=== PATIENT | female | born 1990 | race Caucasian/White ===

== ENCOUNTER 2024-08-04 11:29 | Outpatient (CLI) | payer BC, SELFPAY ==
--- NOTE | 2024-08-04 11:30 | CRLHL7_ITS ---
For Patients: As a result of the Cures Act, medical imaging exams and procedure reports are released immediately into your electronic medical record. You may view this report before your referring provider. If you have questions, please contact your health care provider. OB ULTRASOUND INDICATION: Dating and viability. TECHNIQUE: Real time grayscale imaging of the fetus was performed. Transabominal. LMP: 05/20/2024. LITZY by LMP: 02/24/2025. GA: 10 w, 6 d. Previous US: No. CRL: 3.4 cm. 10 w 2 d. LITZY: 02/28/2025. FHR: 159 BPM. Gestational sac: 4.9 cm. Appears within normal limits. Yolk sac: 4.1 mm. Appears within normal limits. Right ovary: 4.1 x 2.0 x 2.4 cm. CL?. Hypoechoic area possible corpus luteum? 1.4 x 1.1 x 1.3 cm. Left ovary: 2.7 x 1.6 x 1.6 cm. IMPRESSION: 1. Single living intrauterine measuring 10 weeks 2 days with sonographic due date 02/28/2025. 2. Corpus luteal cyst right ovary measures 1.4 cm. Eric Amaro M.D. Diagnostic Radiologist [email or web address] RENNY/[email or web address]/Dictated by: Eric Amaro MD @ 08/04/2024 4:22:00 PM (Electronically Signed)
--- OUTSIDE RECORDS SUMMARY | 2024-08-04 12:05 | XMS_ITS | Clinical Summary ---
Author Organization [facility] Address [address] [place] [address] Care Team Providers Care Electrical Assistant Name Role Phone Unavailable Primary Care Provider Unavailabl e Source Comments You are receiving this document as you are listed as the primary care provider,follow-up provider, or the patient has been referred to you for consultation.This is in compliance with the Medicare and[facility] EHR Incentive Program,which states Providers who transition their patient to another setting of careor provider of care or refers their patient to another provider of care shouldprovide summary care record for each transition of care or referral. [facility] Allergies No known active allergies Medications FLUVIRIN 0.5 ML AFSANEH 11/29/2016 Active ALBUterol sulfate HFA 108 (90 Base) MCG/ACT inhaler Inhale 1-2 Puffs every 4 hours as needed for Wheezing. 1 Each 11/09/2022 Active Active Problems No known active problems Family History Medical History Relation Name Comments Hypertension Mother Depression Brother Heart Disease Maternal Grandfather Alzheimer's Maternal Grandmother Dementia Paternal Grandfather Diabetes Paternal Grandfather Depression Sister Relation Name Status Comments Father Alive Mother Alive Brother Alive Maternal Grandfather Maternal Grandmother Paternal Grandfather Paternal Grandmother Alive Sister Alive Social History Tobacco Use Types Packs/Day Years Used Date Smoking Tobacco: Never Smokeless Tobacco: Never Alcohol Use Standard Drinks/Week Comments Yes 0 (1 standard drink = 0.6 oz pur e alcohol) Comments No Sex and Gender Information Value Date Recorded Sex Assigned at Not on file 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 Gender Identity Not on file Sexual Orientation Not on file 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 Not on file Not on file Last Filed Vital Signs Vital Sign Reading Time Taken Comments Blood Pressure 109/65 11/09/2022 11:28 AM CDT Pulse 87 11/09/2022 11:28 AM CDT Temperature 36.9 C (98.4 F) 11/09/2022 11:28 AM CDT Respiratory Rate 16 11/09/2022 11:28 AM CDT Oxygen Saturation 98% 11/09/2022 11:28 AM CDT Inhaled Oxygen Concentration - - Weight 61.7 kg (136 lb) 02/20/2017 10:44 AM DAY CARE ATTENDANT Height - - Body Mass Index - - Plan of Treatment Health Maintenance Due Date Last Done Comments Cervical Cancer Screening Due 1991 Hep C Screening (Preventive Services) 1991 HIV Screening (Preventive Services) 2007 Adult Preventive Visit 05/03/2009 DTaP/Tdap/Td Vaccine (1 - Tdap) 05/03/2010 HepB Vaccine (1) 05/03/2010 COVID-19 Vaccine (2 - 2023-2 5 season) 2023 03/04/2021 Influenza Vaccine (Season Ended) 2024 11/16/19 21 Zoster/Shingles Vaccine (1 of 2) 05/03/2041 HPV Vaccine Aged Out No longer eligi ble based on patient's age to complete this topic HepA Vaccine Aged Out No longer eligi ble based on patient's age to complete this topic Hib Vaccine Aged Out No longer eligi ble based on patient's age to complete this topic IPV (Polio) Vaccine Aged Out No longe r eligible based on patient's age to complete this topic MCV4 Vaccine Aged Out No longer eligi ble based on patient's age to complete this topic Meningococcal B Vaccine Aged Out No l onger eligible based on patient's age to complete this topic Pneumococcal Vaccine Aged Out No long er eligible based on patient's age to complete this topic Insurance [facility] [place]
--- OUTSIDE RECORDS SUMMARY | 2024-08-04 12:05 | XMS_ITS | Encounter Summary ---
Author Organization [facility] Address [address] [place] [address] Care Team Providers Care Bander And Cellophaner Helper Machine Name Role Phone None Reported, Pcp Primary Care Provider Unavail able Encounter Details Date Type Department Care Team (Late st Contact Info) Description 05/20/2024 Results Follow-Up Department of Family Medicine, [facility], in [place], [place] [address] [place] [id number] Parisa Laws, AMANDA, C.N.P., D.N.P. [address] [place] [phone] US OB First Trimester and Transvaginal Social History Tobacco Use Types Packs/Day Years Used Date Smoking Tobacco: Never Smokeless Tobacco: Never Alcohol Use Standard Drinks/Week Comments Not Currently 0 (1 standard drink = 0.6 oz pur e alcohol) [facility] Utilities Answer Date Recorded In the past 12 months has [facility] [employer] gas, oil, or water [facility] threatened to shut off services in your home? No 12/29/2023 Humiliation, Afraid, Rape, and Kick questionnair e Answer Date Recorded Within the last year, have y ou been afraid of your partner or ex-partner? No 04/22/2023 Within the last year, have y ou been humiliated or emotionally abused in other ways by your partner or ex-partner? No Within the last year, have y ou been kicked, hit, slapped, or otherwise physically hurt by your partner or ex-partner? No 04/22/2023 Within the last year, have y ou been raped or forced to have any kind of sexual activity by your partner or ex-partner? No 04/22/2023 Hunger Vital Sign Answer Date Recorded Within the past 12 months, y ou worried that your food would run out before you got the money to buy more. Never true 12/29/19 24 Within the past 12 months, t he food you bought just didn't last and you didn't have money to get more. Never true 12/29/2023 PRAPARE - Transportation Answer Date Re corded In the past 12 months, has l ack of transportation kept you from medical appointments or from getting medications? No 12/10 In the past 12 months, has l ack of transportation kept you from meetings, work, or from getting things needed for daily living? No 12/29/2023 Depression Answer Date Recor ded PHQ-9 Total Score (max 27) 4 01/29 Housing Stability Answer Date Recorded What is your living situation today? 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 Author [facility] Care Plan for Healthy Care Plan [facility] Care Plan for Healthy No Support, [place] [facility] - Nicotine Dependency Chronic Care Plan [facility] Care Plan for Healthy No Support, [employer] documented as of this encounter Visit Diagnoses Not on filedocumented in this encounter Additional Health Concerns Active Problems Noted Date Diagnosed Date [facility] Care Plan for Healthy 12/11 Assessment Noted Time PHQ-9 Depression Total Score: 4 01/30/20 23 3:38 PM SUB ASSEMBLY TEAM WORKER documented as of this encounter Care Teams Bander And Cell[employer]er Helper Machine Relationship Specialty Start Date End Date None Reported, Pcp PCP - General Family Medicine 05/20/24 documented as of this encounter
--- OUTSIDE RECORDS SUMMARY | 2024-08-04 12:05 | XMS_ITS | Clinical Summary ---
Author Organization [facility] Address [address] [place] [address] Care Team Providers Care Rouge Miller Name Role Phone None Reported, Pcp Primary Care Provider Unavail able Source Comments Patient records contain information from all sites at [facility]. For routine questions regarding patient records, call [phone] during business hours, M-F 8:00 AM - 5:00 PM Central Time. Record requests for emergency care only can be directed to [phone] at any time.[facility] Allergies Active Allergy Reactions Criticality Noted Date Comments Latex Other (see comments) 08/21/2022 Intolerance of latex fruit family (avocado, ramirez, etc.) Quinoa GI intolerance 08/21/2022 Medications * This document contains information received from the source organization and may not represent a complete record from that organization. fluticasone (VERAMYST) 27.5 mcg/actuation nasal spray Administer 2 sprays into each nostril as needed for rhinitis or allergies. Active PNV no.95/ferrous fum/folic ac ( ORAL) Take 4 each by mouth daily. gummy Active Active Problems Problem Noted Date Diagnosed Date Other Immediate Hemorrhage 04/24/2023 Anemia Posthemorrhagic Acute (Blood Loss Anemia) 04/24/2023 Polyhydramnios Unspecified Trimester Single Gest ation 04/22/2023 Section Delivery 04/22/2023 Overview (04/24/2023): The patient was admitted to the [facility] for induction of labor for polyhydramnios. Her was complicated by polyhydramnios, anemia, migraines. Her labor course was induced with Cervidil and IV Pitocin, utilizing natural methods and epidural anesthesia for pain management. Complications of labor included failure to progress, meconium stained fluid. She had a primary delivery, delivering a liveborn female with weight of 4.32 kg . Gestational age: 40w5d. occurred: 04/23/2023 10:28 PM Perineal lacerations or episiotomy: Intact Lacerations were repaired with: none -- no repair needed Contraceptive methods administered during the delivery: None Both mother and baby were in stable condition at the conclusion of the procedure. When the patient met appropriate criteria, she was transferred to the floor. She received her care within the [facility]. Provider: Melony Ordoñez CNM who practices in [place]. Anemia 01/30/2023 Overview (04/24/2023): RESOLVED 01/30/23 28wk labs, Hgb 9.8. Recommended daily iron. Also having symptoms of RRL. Recheck at 36 wks. 03/30/23 Hgb 12.6. Discussed decreasing dosage to every other day. No longer having RRL symptoms. Care And Lactating 09/26/2022 Overview (09/26/2022): 09/26/22 NOB visit. Declines pap smear; plan on collecting at 6wk PP visit. Migraine Headache 09/26/2022 Resolved Problems Problem Noted Date Diagnosed Date Resolved Date Body Mass Index 30.0 To 30.9 Adult 04/22/2023 04/24/2023 Encounters * This document contains information received from the source organization and may not represent a complete record from that organization. Date Type Department Care Team Description 05/20/2024 2:00 PM CDT - 05/20/2024 11:59 PM CDT Hospital Encounter Department of Radiology in [address] [place] [address] [phone] Parisa Laws APRN, C.N.P., D.N.P. Spotting Complicating First Trimester (HCC) Discharge Disposition: Home or Self Care 05/20/2024 2:00 PM CDT Office Visit Department of Family Medicine, [facility], in [address] [place] [address] [phone] Eric Davies M.D. Pasche, Rochelle L, APRN C.N.P., D.N.P. Spotting Complicating First Trimester (HCC) (Primary Dx) Discharge Disposition: Home or Self Care 05/20/2024 1:54 PM CDT - 05/20/2024 1:59 PM CDT Hospital Encounter Department of Laboratory Medicine in [address] [phone] Parisa Laws APRN C.N.P., D.N.P. Spotting Complicating First Trimester (HCC) Discharge Disposition: Home or Self Care 05/20/2024 Results Follow-Up Department of Family Medicine, [facility], in [address] [place] [address] [phone] Parisa Laws APRN, C.N.P., D.N.P. US OB First Trimester and Transvaginal 05/19/2024 Nurse Triage Department of Family Medicine, [facility], in [place], [place] [address] [place] [address] Jovita Bernal R.N. - Vaginal Bleeding 05/18/2024 Clinical Communication Department of Obstetrics and Gynecology in [address] [phone] Christen Burk M.D. Vaginal Bleeding from Last 3 Months Immunizations Immunization Administration Dates Next Due 4vHPV (discontinued) 08/19/2013,01/31/2013 DTP 09/06/1992, 2,1991,1991 DTaP (Infanrix, Tripedia) 08/26/1996 HepB, Unspecified 04/13/2000,10/31/1999,08/24/20 00 Hib, Unspecified 09/06/1992,1991, 2 Influenza, Unspecified 10/22/2013,12/03/2012 MMR 09/13/2003,09/06/1992 OPV 08/26/1996, 3,1991,1991,1991 Td (Adult), adsorbed 09/13/2003 Tdap 01/05/2013 influenza trivalent vaccine (6 months and older)(PF) 12/10/2023,11/29/2016,11/18/2014 influenza vaccine quad (FLUZONE/FLUARIX) (6 months and older)(PF) 11/15/2020,12/07/2019,12/02/2017,2015 Family History Medical History Relation Name Comments Alcohol abuse Brother Juan An No Known Problems Daughter 1 Migraines Father Eulalio An Gets regular m igraines Leukemia Maternal Grandfather Alzheimer's disease Maternal Grandmother Leukemia Maternal Grandmother Alcohol abuse Mother Rosie An Asthma Mother Rosie An Uses an inhaler occasionally, a few times a year Hypertension Mother Rosie An Has been on HBP meds for as long as I can remember, though she doesn't have the healthiest habits Alcohol abuse Mother's Brother Vaughn Pedro Obesity Paternal Grandfather No Known Problems Sister 1 No Known Problems Sister 2 Relation Name Status Comments [place] An Alive Daughter 1 Daughter 2 Suzie Campa Alive Father Eulalio An Alive Maternal Grandfather Maternal Grandmother Mother Rosie An Alive Mother's Brother Vaughn Pedro Alive Paternal Grandfather Paternal Grandmother Sister 1 Alive Sister 2 Alive Social History Tobacco Use Types Packs/Day Years Used Date Smoking Tobacco: Never Smokeless Tobacco: Never Alcohol Use Standard Drinks/Week Comments Not Currently 0 (1 standard drink = 0.6 oz pur e alcohol) [facility] Utilities Answer Date Recorded In the past 12 months has th e [place], gas, oil, or water [employer] threatened to shut off services in your [...] your living situation today? I [facility] a [facility] place to live 12/29/2023 Comments No Sex and Gender Information Value Date Recorded Sex Assigned at Female 08/18/2022 7:59 AM CDT Legal Sex Female 6:12 PM DOCK OPERATOR Gender Identity Female 08/18/2022 7:59 AM CDT Sexual Orientation Choose not to disclose 2022 7:59 AM CDT Last Filed Vital Signs Vital Sign Reading Time Taken Comments Blood Pressure 115/76 05/20/2024 2:05 PM CDT Pulse 87 05/20/2024 2:05 PM CDT Temperature 36.5 C (97.7 F) 05/20/2024 2:05 PM CDT Respiratory Rate 18 04/26/2023 11:00 AM CDT Oxygen Saturation 97% 04/26/2023 11:00 AM CDT Inhaled Oxygen Concentration - - Weight 68.5 kg (151 lb 0.2 oz) 05/20/2024 2:05 P M CDT Height 166.2 cm (5' 5.43) 05/20/2024 2:05 PM CD T Body Mass Index 24.8 05/20/2024 2:05 PM CDT Plan of Treatment Health Maintenance Due Date Last Done Comments Hepatitis C Screening 1991 HPV Vaccines (3 - 3-dose series) 11/11/2013 08/19/2013, 01/31/2013 Cervical/Vaginal Cancer Screening 03/31/2017 03/31/2014 DTaP,Tdap,and Td Vaccines (7 - Td or Tdap) 01/05/2023 01/05/2013, 09/13/2003, 08/26/1996, Additional history exists COVID-19 Vaccine () 10/11/2023 03/04/2021 IPV Vaccines Completed 08/26/1996, 08/10, 1991, Additional history exists Hepatitis B Vaccines Completed 04/13/2000, 10/31/1999, 10/03/1999 HIV Screening Completed 09/26/2022 Influenza Vaccine Completed 12/10/2023, , 12/07/2019, Additional history exists Depression Screening (Annual PHQ-2) Completed 05/20/2024, 05/20/2024 Pneumococcal vaccine (0-49 years) Aged Out No longer eligible based on patient's age to complete this topic Goals Goal Patient Goal Type Associated Problems Recent Progress Patient-Stated? Author [facility] Care Plan for Healthy Care Plan [facility] Care Plan for Healthy No Support, [facility] - Nicotine Dependency Chronic Care Plan [facility] Care Plan for Healthy No Support, [place] Procedures Procedure Name Priority Date/Time Associated Diagnosis Comments US OB FIRST TRIMESTER AND TRANSVAGINAL RAD - Routine (most inpatients and all outpatients) 05/20/2024 2:49 PM CDT Spotting Complicating First Trimester (HCC) BASIC METABOLIC PANEL, S/P Routine 05/20/2024 1:58 PM CDT Spotting Complicating First Trimester (HCC) HUMAN CHORIONIC GONADOTROPIN (HCG), GIUSEPPE, Routine 05/20/2024 1:58 PM CDT Spotting Complicating First Trimester (HCC) CBC WITH DIFFERENTIAL, B Routine 05/20/2024 1:58 PM CDT Spotting Complicating First Trimester (HCC) HIV-1/-2 AG AND AB SCRN, PLASMA Routine 09/26/2022 12:36 PM CDT Encounter For Supervision Of Normal Unspecified Trimester (HCC) PATHOLOGY ELEMENT BURNER CYTOLOGY Routine 03/31/2014 4:00 PM DOCK OPERATOR from Last 3 Months or Most Recently Relevant to Health Maintenance Results * US OB First Trimester and Transvaginal (05/20/2024 2:49 PM CDT) Anatomical Region Laterality Modality Body, Ultrasound OB RST LOS, Ultrasound ARZ LOS, Ultrasound FLA LOS N/A Ultrasound Impressions 05/20/2024 3:00 PM CDT Small fluid collection with irregular cystic areas in endometrium. Differentials include early loss versus intrauterine too early to be identified. No positive findings of ectopic . Recommend clinical correlation. Narrative 05/20/2024 3:00 PM CDT EXAM: US OB FIRST TRIMESTER AND TRANSVAGINAL COMPARISON: Ultrasound OB, 04/22/2023. TECHNIQUE: Transabdominal and Transvaginal FINDINGS: Number of Gestations: Single Gestational age and LITZY by LMP or OB/EHR assignment: 9 w 2 d, LITZY: 12/21/2024 INTRAUTERINE Embryo: Not seen, Gestational Sac: Irregular cystic areas in the endometrium. Yolk Sac: Not seen Uterus: No unexpected findings. Right Ovary/Adnexa: Normal. Left Ovary/Adnexa: Corpus luteum. Cervical Length: Subjectively normal by Transabd evaluation only Intraperitoneal Fluid: None. Procedure Note Nik Curtis M.B., Chris, MEnedina. - 05/20/2024 EXAM: US OB FIRST TRIMESTER AND TRANSVAGINAL COMPARISON: Ultrasound OB, 04/22/2023. TECHNIQUE: Transabdominal and Transvaginal FINDINGS: Number of Gestations: Single Gestational age and LITZY by LMP or OB/EHR assignment: 9 w 2 d, LITZY:12/21/2024 INTRAUTERINE Embryo: Not seen, Gestational Sac: Irregular cystic areas in the endometrium. Yolk Sac: Not seen Uterus: No unexpected findings. Right Ovary/Adnexa: Normal. Left Ovary/Adnexa: Corpus luteum. Cervical Length: Subjectively normal by Transabd evaluation only Intraperitoneal Fluid: None. IMPRESSION: Small fluid collection with irregular cystic areas in endometrium.Differentials include early loss versus intrauterine pregnancytoo early to be identified. No positive findings of ectopic .Recommend clinical correlation. us Parisa Laws APRN C.N.P., D.N.P. IMG OB US PROCEDURES Final Result * (ABNORMAL) CBC with Differential, Blood (05/20/2024 1:58 PM CDT) Pathologist [facility] Hemoglobin 14.2 11.6 - 15.0 g/dL 05/20/2024 2:12 PM CDT [facility] Hematocrit 41.3 35.5 - 44.9 % 05/20/2024 2:12 PM CDT [facility] Erythrocytes 4.66 3.92 - 5.13 x10(12)/L 05/20/2024 2:12 PM CDT [facility] MCV 88.6 78.2 - 97.9 fL 05/20/2024 2:12 PM CDT [facility] RBC Distrib Width 12.7 12.2 - 16.1 % 05/20/2024 2:12 PM CDT [facility] Platelet Count 284 157 - 371 x10(9)/L 05/20/2024 2:12 PM CDT [facility] Leukocytes 6.8 3.4 - 9.6 x10(9)/L 05/20/2024 2:12 PM CDT [facility] Neutrophils 4.20 1.56 - 6.45 x10(9)/L 05/20/2024 2:12 PM CDT [facility] Lymphocytes 1.56 0.95 - 3.07 x10(9)/L 05/20/2024 2:12 PM CDT [facility] Monocytes 0.83(H) 0.26 - 0.81 x10(9)/L 05/20/2024 2:12 PM CDT [facility] Eosinophils 0.20 0.03 - 0.48 x10(9)/L 05/20/2024 2:12 PM CDT [facility] Basophils 0.03 0.01 - 0.08 x10(9)/L 05/20/2024 2:12 PM CDT [facility] Blood (Blood, Venous) 05/20/2024 1:58 PM CDT 05/20/2024 2:00 PM CDT us Parisa Laws APRN, C.N.P., D.N.P. LAB BLOOD ADD-ON Final Result Performing Organization Address City/[facility]/ZIP Co de Phone Number [facility] [address] [place] [phone], [facility] in [address] [address] * (ABNORMAL) hCG (Human Chorionic Gonadotropin), Quantitative, (05/20/2024 1:58 PM CDT) HCG, Quantitative, , P 7440(H) <5 IU/L 05/20/2024 2:25 PM CDT [facility] Blood (Blood, Venous) 05/20/2024 1:58 PM CDT 05/20/2024 2:00 PM CDT us Parisa Laws APRN, C.N.P., D.N.P. LAB BLOOD ADD-ON Final Result [facility] [address] [place] [id number], [facility] [address] [address] * Basic Metabolic Panel (05/20/2024 1:58 PM CDT) Potassium, P 4.0 3.6 - 5.2 mmol/L 05/20/2024 2:25 PM CDT [facility] Sodium, P 141 135 - 145 mmol/L 05/20/2024 2:25 PM CDT [facility] Chloride, P 105 98 - 107 mmol/L 05/20/2024 2:25 PM CDT [facility] Bicarbonate, P 23 22 - 29 mmol/L 05/20/2024 2:25 PM CDT [facility] Anion Gap, P 13 7 - 15 05/20/2024 2:25 PM CDT [facility] BUN (Blood Urea Nitrogen), P 7 6 - 21 mg/dL 05/20/2024 2:25 PM CDT [facility] Creatinine 1.04 0.59 - 1.04 mg/dL 05/20/2024 2:25 PM CDT [facility] Estimated GFR (eGFR) 73 >=60 mL/min/BSA 05/20/2024 2:25 PM CDT [facility] Comment: Estimated GFR calculated using the 2020 CKD_EPI creatinine equation. Calcium, Total, P 9.0 8.6 - 10.0 mg/dL 05/20/2024 2:25 PM CDT [facility] Glucose, P 96 70 - 140 mg/dL 05/20/2024 2:25 PM CDT [facility] Blood (Blood, Venous) 05/20/2024 1:58 PM CDT 05/20/2024 2:00 PM CDT us Parisa Laws APRN, C.N.P., D.N.P. LAB BLOOD ADD-ON Final Result [facility] [address] [place] [address], [facility] in [place] [address] [place] [phone] * HIV-1/-2 Ag and Ab Scrn, Plasma (09/26/2022 12:36 PM CDT) HIV Ag/Ab Scrn, P Negative Negative 09/29/2022 10:18 AM CDT ECLR Comment: Negative result does not rule out HIV infection. If exposure to HIV infection occurred <14 days ago, contact the laboratory to request addition of HIV-1/HIV-2 RNA detection , Plasma (HPP12). HIV-1 p24 Ag Scrn, P Negative Negative 09/29/2022 10:18 AM CDT ECLR Comment: Negative result does not rule out HIV infection. If exposure to HIV infection occurred <14 days ago, contact the laboratory to request addition of HIV-1/HIV-2 RNA detection , Plasma (HPP12). HIV-1 Ab Scrn, P Negative Negative 09/29/2022 10:18 AM CDT ECLR Comment: Negative result does not rule out HIV infection. If exposure to HIV infection occurred <14 days ago, contact the laboratory to request addition of HIV-1/HIV-2 RNA detection , Plasma (HPP12). HIV-2 Ab Scrn, P Negative Negative 09/29/2022 10:18 AM CDT ECLR Comment: Negative result does not rule out HIV infection. If exposure to HIV infection occurred <14 days ago, contact the laboratory to request addition of HIV-1/HIV-2 RNA detection , Plasma (HPP12). Blood (Blood, Venous) 09/26/2022 12:36 PM CDT 09/26/2022 8:56 PM CDT us Melony Ordoñez APRN, CNM, M.S.N. LAB MICROBIOLOGY - BLOOD ORDERABLES Final Result [facility] [address] [place] [address], [facility] ECLR [place] [address] * Pathology ELEMENT BURNER Cytology (03/31/2014 4:00 PM DOCK OPERATOR) 03/31/2014 4:00 PM DOCK OPERATOR Narrative [facility] - 04/05/2014 4:02 PM DOCK OPERATOR Pat: JM AN ([facility]-[id number]) Age/Sex: 23 F Loc: -00 (RWDena ) CoPath LI: 03/31/14 16:00 REC: 03/31/14 16:00 PHYS: , Cytology Surepath thinlayer cervica Patient Name: JM AN MR#: [id number] Submitting Physician: DEA CALI DEVELOPER ARCHITECT [id number] Specimen #[id number] Performing Lab: [address] [address] CLINICAL HISTORY: Last menstrual period: Status: Specimen Source: Cervical/Endo Cervical Pap Type: Routine Pap Clinical History/Status: Other Ancillary Testing: If ASCUS, Reflex to HPV Testing Hormone Therapy: Yes Pap Specimen: SurePath Last Menstrual Period: Unknown Source: Surepath thinlayer cervical/endocervical specimen [SurePath vial with collection device(s)] Diagnosis Specimen Adequacy: Satisfactory for interpretation : endocervical or transformation zone component present. General Categorization: Negative for intraepithelial lesion or malignancy. The PAP smear is not a diagnostic procedure and should not be used as the sole means to detect cervical cancer. It is only a screening procedure to aid in the detection of cervical cancer and its precursors. Both false-negative and false-positive results have been experienced. us Dea Cali APRN, C.N.P., [facility] PAP COPAT H ORDERABLES Final Result [facility] from Last 3 Months or Most Recently Relevant to Health Maintenance Additional Health Concerns Active Problems Noted Date Diagnosed Date [facility] Care Plan for Healthy 12/11 Insurance [employer] [id number] [facility] [place] [address] Advance Directives For more information, please contact: [phone] * Full Code (Latest Code Status on File) Date Activated Date Inactivated Comments 04/24/2023 2:20 AM 04/26/2023 3:28 PM Question Answer Comments Full Code: Discussed * Full Code Date Activated Date Inactivated Comments 04/23/2023 10:39 AM 04/24/2023 2:20 AM Question Answer Comments Full Code: Not Discussed Due to: Not medically appropriate Care Teams Rouge Miller Relationship Specialty Start Date End Date None Reported, Pcp PCP - General Family Medicine 05/20/24
--- OUTSIDE RECORDS SUMMARY | 2024-08-04 12:05 | XMS_ITS | Data Portability ---
Author Organization [place] - [facility] [employer] [facility] Address [address] [place] [address] Assessment Encounter Date Assessment Date Assessment LastModified by Organization Details LastModified Time 01/11/2024 01/11/2024 A/P: DDx - UTI, IC or yeast infection, vaginitis, kidney stones, pyelo. Likely UTI. -Currently no s/s of ascending infection. -Discussed likely cause of symptoms and expected course with patient. -Advised we can get a urine culture done prior to starting ABX to confirm bacteria and sensitivities but she prefers to take ABX without getting culture first and I agreed to this since the episode seems uncomplicated. -She can also try to flush system with water and cranberry juice and wait to see if symptoms improve on their own. 1. Macrobid BID x 5 days was prescribed. [email or web address] Not available 01/11/2024 12:06:37 Plan of Treatment Reminders Order Date Submit Date Provider Last Modified By Organization Details Last Modified Time Details Appointments None recorded. Lab None recorded. Referral None recorded. Procedures None recorded. Surgeries None recorded. Imaging None recorded. Medication Orders nitrofurant oin monohydrate /macrocryst als 100 mg capsule 2023 024 Josey [id number], [address] [place], [id number], 12:08:33 Patient TargetsNo targets recorded. Patient Instructions Encounter Date Encounter Id Patient Instructions Last Modified By Organization Details Last Modified Time 01/11/2024 [id number] Urinary Tract Infection (UTI) in Women: Care Instructions [email or web address] Not available 01/11/2024 12:08:21 MEDICATIONS FOR OBSTETRIC PATIENTS Please avoid (if possible) during the first trimester (20 weeks gestation) any of the following medications listed that contains either Pseudoephedrine HCL or Phenylephrine HCL (noted with an asterisk). You can use after first trimester. Also avoid these if any issues with your blood pressure. Allergy/Sinus Tylenol Breathe Right Strips Benadryl Alavert, Mucinex, Chlor-Trimeton, Travist, Claritin, Zyrtec, Simofresh Nasal [place] Neti-Pot Nasal Wash Antihistamine plus Analgesic Tylenol Sore Throat Nighttime Liquid Constipation Drink lots of liquids and add fiber into your diet or Fibercon Colace Surfak 2-3 x a day Miralax Use a bulk laxative like Metamucil [id number] Robitussin Cough and Congestion Liquid Robitussin DM Liquid Sudafed Cold Capsules* Tylenol Cold Severe Congestion Daytime Caplets Tylenol Flu Daytime Gel Caps Cough Suppressant: Robitussin DM Expectorant: Robitussin PE Congestion: Robitussin CF Cough Suppressant Plus Expectorant Mucinex DM Extended Release Tablets Coricidin HBP Chest Congestion and Cough Soft Gels Decongestant Sudafed 12 or 24 Hour Tablets* Sudafed Nasal Decongestant Tablets* Decongestant Plus Expectorant Mucinex D- Extended Release Tablets* Sudafed Non-Drying Liquid Caps* Diarrhea Donnagel Immodium Notify Doctor if diarrhea persists more than 72 hours Expectorant Mucinex Extended Release Tablets Robitussin Chest Congestion Liquid Gas Mylicon-80 or Mylanta II Increase fiber in diet, avoid constipation Headache/Analgesic Acetaminophen, Tylenol, Extra Strength Tylenol ABSOLUTELY NO ADVIL, ALEVE, OR ASPRIN Heartburn Eat Small Frequent Meals, Avoid Rodey and Spicy Foods Avoid Drinking Fluids Right Before Bed Tums, Malox, or Mylanta Pepcid or Pepcid AC Hemorrhoids Drink Lots Of Liquids and Add Fiber To Diet Warm Bath Soaks Dermoplast [place] Anusol, Nupercainal, Witch Ruthy, Preparation H, or Tucks Insomnia Benadryl Tylenol PM Leg Cramps Stretch Leg Muscles, Decrease Physical Activity Just Before Bed Leg Warmers At Night When Going To Bed Increase Calcium Intake Multi-Symptoms Sudafed Sinus and Cold Liquid* Nausea Avoid strong flavored, greasy, or spicy foods. Eat Small Frequent Meals Zahra Tablets Drink Between Meals, Not With Meals B-Nkechi Pops/Lozenges Try Emetrol or B6 (no more than 2 per day) 30 minutes prior to meals and Unisom in the morning and evening. Sore Throat Gargle With Salt Water Sucrets or Cepacol Lozenges Chloraseptic Throat [place] Swelling Elevate Legs Support Hose Increase Fluid Intake Call Doctor if swelling is accompanied with headaches AND not relieved with Tylenol *Over the counter alternative for DICLEGIS: Vitamin B6 25mg, 1 tablet by mouth 3-4 times daily. Unisom 1 tablet at night, may add tablet in the morning if needed. [email or web address] Not available 01/11/2024 12:07:43 Reason for Referral None Reported. Medical Equipment None Reported. Allergies No known drug allergies Medications Name Sig Start Date Stop Date Status Note LastModified by Organization Details LastModified Time phenazopy ridine 200 mg tablet active [NOT TAKING] Not Available Not Available Not Available oxycodone 5 mg tablet active Not Available Not Available Not Available nitrofura ntoin monohydra te/macroc rystals 100 mg capsule Take 1 capsule every 12 hours by oral route for 5 days. 2023 active NOT for pyelonep hritis Not Available Not Available Not Available UNLISTED MEDICATIO N [Migrate d medicati on name:] Sertrali ne:: 10/14 completed Not Available Not Available Not Available UNLISTED MEDICATIO N [Migrate d medicati on name:] Omeprazo le 20 mg delayed release capsule: :20 mg 10/14 completed Not Available Not Available Not Available Vitals None Recorded Social History None recorded. Functional Status None recorded. Mental Status None recorded. Family History Nothing Reported. Medical History No medical history recorded. Gynecological HistoryNo gynecological history recorded. Obstetrics History GPAL:G 0 P 0 0 0 0 Past Encounters Encounter ID Performer Location Encounter Start Date Encounter Closed Date Diagnosis/Indication Diagnosis SNOMED-CT Code Diagnosis ICD10 Code Diagnosis Note [id number] H[facility] Mcmill[facility] [address] [id number] 01/11/2024 11:48:59 01/11/2024 18:08:49 Urinary tract infectious disease 42853503 N39.0 Health Concerns Section Related Observation LastModified by Organization Detai ls LastModified Time None Recorded Concern Status LastModified by Organization Details LastModified Time None Recorded Advance Directives Directive None Recorded Payers Insurance Date Sequence Insurance Name Policy Number Policy Bingham Covered Member ID Bingham Member ID Guarantor Name 01/11/2024 1 [facility] [id number] Estefani Campa [id number] Estefani Dicklvis 01/11/2024 [facility] [id number] Estefani Dicklvis [id number] Estefani Lillvis 01/11/2024 2 *SELF PAY* [id number] Estefani Dicklvis [id number] Estefani Lillvis 01/11/2024 1 *SELF PAY* Mali Campa Notes Date Note Type Note Provider Name and Address Organization Details Recorded Time 01/11/2024 text/html Patient greeted. Patient , location, and phone number confirmed. Verbal consent obtained to treat this patient via the telemedicine/video platform. Patient/parent understands that there are limitations to my evaluation. Clinician attests they are physically located in the following state at the time of visit: [place] CC: urinary symptoms HPI:33 yo female with symptoms for 2 days7 weeks Reports dysuria and frequencyNo hematuriaReports low abdominal discomfort, no associated back painDenies vaginal itching, odor, or dischargeLast UTI 6 months ago RX was taken and symptoms alleviated.No h/o kidney stones or kidney infection ROS:GEN: no f/c, fatigued since onset of symptomsGI: no nausea or vomiting, no diarrheaGU: as per HPI HOLA Mcmillan [address] [facility] [address], [place], [address], [facility] 01/11/2024 12:08:56 OBGyn Episode No OBEpisode recorded.
--- OUTSIDE RECORDS SUMMARY | 2024-08-05 01:04 | XMS_ITS | Clinical Summary ---
Author Organization [facility] Address [address] [place] [address] Care Team Providers Care Academic Services Coordinator Name Role Phone Unavailable Primary Care Provider Unavailabl e Source Comments You are receiving this document as you are listed as the primary care provider,follow-up provider, or the patient has been referred to you for consultation.This is in compliance with the Medicare andThe [facility] EHR Incentive Program,which states Providers who transition their patient to another setting of careor provider of care or refers their patient to another provider of care shouldprovide summary care record for each transition of care or referral. 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
== END 2024-08-04 11:30 | disposition home or self-care (01) ==
LOC: US 11:30
PROVIDERS: Visit Provider Advanced Practice Midwife
DX: Z34.91 Encounter for supervision of normal pregnancy, unspecified, first trimester (principal); O34.81 Maternal care for other abnormalities of pelvic organs, first trimester; N83.11 Corpus luteum cyst of right ovary; Z3A.10 10 weeks gestation of pregnancy; Z34.81 Encounter for supervision of other normal pregnancy, first trimester; Z67.20 Type B blood, Rh positive
CPT/HCPCS: 76801; 83021; 86850; 86900; 86901; 87086

== ENCOUNTER 2024-08-04 12:49 | Outpatient (CLI) | payer BC, SELFPAY | END 2024-08-04 12:50 | disposition home or self-care (01) | PROVIDERS: Visit Provider Advanced Practice Midwife | DX: Z34.81 Encounter for supervision of other normal pregnancy, first trimester (principal); Z67.20 Type B blood, Rh positive | CPT/HCPCS: 76801; 83020; 83021; 85660; 86850; 86900; 86901; 87086 ==

== ENCOUNTER 2024-10-07 09:59 | Outpatient (CLI) | payer BC, SELFPAY ==
--- NOTE | 2024-10-07 10:15 | CRLHL7_ITS ---
For Patients: As a result of the Century Cures Act, medical imaging exams and procedure reports are released immediately into your electronic medical record. You may view this report before your referring provider. If you have questions, please contact your health care provider. OB ULTRASOUND SURVEY LMP: 05/20/2024. LITZY by LMP: 02/24/2025. GA: 20 w, 0 d. INDICATION: anatomy. TECHNIQUE: Real time bradshaw scale imaging of the fetus was performed. Evaluate anatomy. Transabdominal imaging performed. position: Vertex. Cervix: Visualized. Technique: Transabdominal. Length of closed cervix: 4.0 cm. Placenta/cord: Anterior. Technique: Transabdominal. Placenta tip to internal OS: 7.5 cm. Umbilical Cord: 3-vessel cord. Placenta insertion: Marginal (within 2 cm of placenta edge). Amniotic Fluid: 3.8 cm SDP (greater than/equal to: 2- less than 8 cm). SURVEY: Observed Structures. Calvarium/Spine: Cerebellum: 2.0 cm, 20 w 5 d. Cisterna Magna: 4.5 mm. Nuchal Fold: 4.1 mm. Lateral Ventricle: 5.9 mm. CSP: Yes. Midline Falx: Yes. Choroid Plexus: Yes. Spine: Yes. Abdomen: Stomach: Yes. Abd Cord Insertion: Yes. Urinary Bladder: Yes. Kidneys: Yes. Diaphragm: Yes. Face: Nose/lips: Yes. Orbital view: Yes. Profile: Yes. Limbs: Upper Extremities: Yes. Lower Extremities: Yes. Hands: Yes. Feet: Yes. Vascular: 4-Chamber Heart: Yes. LVOT: Yes. RVOT: Yes. 3VV: Yes. 3VTV: Yes. BPD: 4.4 cm. 19 w, 1 d, 17.4 percent. HC: 16.6 cm. 19 w, 2 d, 12.9 percent. AC: 14.3 cm. 19 w, 4 d, 32.2 percent. FL: 3.1 cm. 19 w, 4 d, 25.2 percent. FL/AC ratio: 21.48 percent. HC/AC ratio: 1.16. heart rate: 147 bpm. age by this US: 19 w, 5 d. LITZY by this US: 02/26/2025. EFW: 297.97 g. Weight: 11 oz. Percentile by LITZY: 21.6 percent. IMPRESSION: 1. Sonographic gestational age 19 weeks 5 days and sonographic due date 02/26/2025. Good correlation with dates. 2. Normal anatomic survey. 3. Marginal placental cord insertion located 1.5 cm from the placental edge. Eric Amaro M.D. Diagnostic Radiologist [email or web address] RENNY/lorene paulson/Dictated by: Eric Amaro MD @ 10/07/2024 12:58:00 PM (Electronically Signed)
== END 2024-10-07 10:00 | disposition home or self-care (01) ==
LOC: US 09:59
PROVIDERS: Visit Provider Advanced Practice Midwife
DX: Z34.92 Encounter for supervision of normal pregnancy, unspecified, second trimester (principal); O43.192 Other malformation of placenta, second trimester; Z3A.20 20 weeks gestation of pregnancy
CPT/HCPCS: 76805

== ENCOUNTER 2024-12-02 11:21 | Outpatient (CLI) | payer BC, SELFPAY | END 2024-12-02 11:22 | disposition home or self-care (01) | LOC: NFLDREF 11:24 | PROVIDERS: Visit Provider Advanced Practice Midwife | DX: Z34.93 Encounter for supervision of normal pregnancy, unspecified, third trimester (principal) | CPT/HCPCS: 86592; 86703; 86706; 86803; 87340 ==

== ENCOUNTER 2024-12-23 22:52 | Outpatient (CLI) | payer BC, SELFPAY ==
[2024-12-23 23:01] VITALS: PULSE 95; O2SAT 99
[2024-12-23 23:16] VITALS: BP 127/73; PULSE 87; TEMP 36.6
[2024-12-23 23:42] LABS: Alanine Aminotransferase* 13 U/L (4-35); Aspartate Amino Transferase* 31 U/L (12-35)
--- NOTE | 2024-12-24 00:38 | PC.OBNST ---
NST Note NST Note Start: 12/23/24 22:15 Freq: ONCE Status: Active Protocol: Document 12/24/24 00:36 [email or web address] (Rec: 12/24/24 00:38 MARIA ISABEL [id number]) NST Note 4 Para (# of births) 1 EDC 02/24/25 Gestational Age In 31 Weeks & 1 Days Weeks & Days Patient Presented Other with Complaint(s) of Other Complaints itching, Provider requested labs and NST Reactive Yes Appropriate for Yes Gestational Age VIVEK Victor, RN Date 12/24/24 Reactive Yes Appropriate for Yes Gestational Age VIVEK Ramirez RN Date 12/24/24 OB NST charge Yes Complete NST Note Yes via Write Note The provider's electronic signature indicates the NST is reactive/appropriate for gestational age. *Note to provider: If an addendum is required, open the patient's chart and click on the note under the Nurse/Allied Health tab.
== END 2024-12-24 00:15 | disposition home or self-care (01) ==
LOC: OB OUT 22:52 → OB 22:52
PROVIDERS: Absent Provider Advanced Practice Midwife; Visit Provider Advanced Practice Midwife
DX: O26.893 Other specified pregnancy related conditions, third trimester (principal); L29.89 Other pruritus; Z3A.31 31 weeks gestation of pregnancy
CPT/HCPCS: 36415; 59025; 82239; 84450; 84460; G0463

== ENCOUNTER 2024-12-30 10:06 | Outpatient (CLI) | payer BC, SELFPAY | END 2024-12-30 10:07 | disposition home or self-care (01) | LOC: NFLDREF 01-05 14:16 | PROVIDERS: Visit Provider Advanced Practice Midwife | DX: O99.713 Diseases of the skin and subcutaneous tissue complicating pregnancy, third trimester (principal); L29.9 Pruritus, unspecified | CPT/HCPCS: 82239; 84450; 84460 ==

== ENCOUNTER 2025-01-06 13:58 | Outpatient (CLI) | payer BC, SELFPAY | END 2025-01-06 13:59 | disposition home or self-care (01) | PROVIDERS: Visit Provider Obstetrics & Gynecology | DX: O99.713 Diseases of the skin and subcutaneous tissue complicating pregnancy, third trimester (principal); L29.9 Pruritus, unspecified | CPT/HCPCS: 82239; 84450; 84460 ==

== ENCOUNTER 2025-01-13 10:43 | Outpatient (CLI) | payer BC, SELFPAY | END 2025-01-13 10:44 | disposition home or self-care (01) | LOC: NFLDREF 01-18 15:38 | PROVIDERS: Visit Provider Obstetrics & Gynecology | DX: O99.713 Diseases of the skin and subcutaneous tissue complicating pregnancy, third trimester (principal); L29.9 Pruritus, unspecified; Z3A.35 35 weeks gestation of pregnancy | CPT/HCPCS: 82239; 84450; 84460 ==

== ENCOUNTER 2025-01-13 10:44 | Outpatient (CLI) | payer BC, SELFPAY ==
--- NOTE | 2025-01-13 10:45 | CRLHL7_ITS ---
For Patients: As a result of the Century Cures Act, medical imaging exams and procedure reports are released immediately into your electronic medical record. You may view this report before your referring provider. If you have questions, please contact your health care provider. OB ULTRASOUND LMP: 05/20/2024. LITZY by LMP: 02/24/2025. GA: 34 w, 0 d. Single. Comparison: 10/07/2024, 08/04/2024. INDICATION: Intrahepatic cholestasis, suspicion. TECHNIQUE: Real time grayscale imaging of the fetus was performed. Transabdominal. CERVIX: Not visualized. POSITIONING: Vertex. AMNIOTIC FLUID: 19.1 cm RAQUEL. 8.1 cm. SDP (N: greater than 2 x 1 cm) BIOPHYSICAL PROFILE: 2: Gross body movements 2: tone 2: Respiratory activity 2: Amniotic fluid SDP (N: greater than 2 x 1 cm) 8/8: Total score PLACENTA: Technique: Transabdominal. PLACENTA POSITION: Anterior. DOPPLER: heart rate: 134 bpm. IMPRESSION: Normal biophysical profile score 8/8. Eric Amaro M.D. Diagnostic Radiologist [email or web address] RENNY/lorene paulson/Dictated by: Eric Amaro MD @ 01/13/2025 12:13:00 PM (Electronically Signed)
== END 2025-01-13 10:45 | disposition home or self-care (01) ==
LOC: US 10:44
PROVIDERS: Visit Provider Obstetrics & Gynecology
DX: O99.713 Diseases of the skin and subcutaneous tissue complicating pregnancy, third trimester (principal); L29.9 Pruritus, unspecified; Z3A.34 34 weeks gestation of pregnancy
CPT/HCPCS: 76819

== ENCOUNTER 2025-01-20 12:01 | Outpatient (CLI) | payer BC, SELFPAY ==
--- NOTE | 2025-01-20 12:00 | CRLHL7_ITS ---
For Patients: As a result of the Cures Act, medical imaging exams and procedure reports are released immediately into your electronic medical record. You may view this report before your referring provider. If you have questions, please contact your health care provider. OBSTETRICAL ULTRASOUND ??? BIOPHYSICAL PROFILE INDICATION: Suspicion of intrahepatic cholestasis. CLINICAL HISTORY: LITZY by LMP: 02/24/2025 Gestational Age: 35 weeks 0 days COMPARISON: 01/13/2025, 10/07/2024, 08/04/2024. TECHNIQUE: Real-time bradshaw-scale transabdominal imaging of the fetus was performed. FINDINGS: Fetus: Single Cervix: Not visualized positioning: Vertex Amniotic Fluid: 7.2 cm SDP BIOPHYSICAL PROFILE: Gross body movements: 2 tone: 2 Respiratory activity: 2 Amniotic fluid SDP: 2 Total score: 8 Placenta technique: Transabdominal Placenta position: Anterior heart rate: 137 bpm BIOMETRY: BPD: 8.4 cm, 33 weeks 6 days, 20.7% HC: 32.2 cm, 36 weeks 3 days, 51.8% AC: 32.9 cm, 36 weeks 6 days, 94.3% FL: 6.9 cm, 35 weeks 4 days, 57.9% FL/AC Ratio: 21.04% HC/AC ratio: 0.98 EFW: 2859 grams; 6 lbs. 5 oz. age by this ultrasound: 35 weeks 5 days LITZY by this ultrasound: 02/19/2025 Percentile by LITZY: 78.8% IMPRESSION: 1. Sonographic gestational age is 35 weeks 5 days and sonographic due date is 02/19/2025. Sonographic age is 5 days ahead of the clinical age. 2. Estimated weight is 79th percentile. Abdominal circumference is 94th percentile. 3. Normal biophysical profile score of 8/8. ERIC BUSTOS M.D. Diagnostic Radiologist [email or web address] Transcribed: 3:[address]/Dictated by: Eric Bustos MD @ 01/20/2025 2:26:00 PM (Electronically Signed)
== END 2025-01-20 12:02 | disposition home or self-care (01) ==
LOC: US 12:02
PROVIDERS: Visit Provider Obstetrics & Gynecology
DX: O99.713 Diseases of the skin and subcutaneous tissue complicating pregnancy, third trimester (principal); L29.9 Pruritus, unspecified; Z3A.35 35 weeks gestation of pregnancy
CPT/HCPCS: 76816; 76819

== ENCOUNTER 2025-01-20 13:15 | Outpatient (CLI) | payer BC, SELFPAY | END 2025-01-20 13:16 | disposition home or self-care (01) | LOC: NFLDREF 13:16 | PROVIDERS: Visit Provider Advanced Practice Midwife | DX: O99.713 Diseases of the skin and subcutaneous tissue complicating pregnancy, third trimester (principal); L29.9 Pruritus, unspecified; Z3A.35 35 weeks gestation of pregnancy | CPT/HCPCS: 82239; 84450; 84460 ==

== ENCOUNTER 2025-01-27 09:08 | Outpatient (CLI) | payer BC, SELFPAY ==
--- NOTE | 2025-01-27 09:15 | CRLHL7_ITS ---
For Patients: As a result of the Cures Act, medical imaging exams and procedure reports are released immediately into your electronic medical record. You may view this report before your referring provider. If you have questions, please contact your health care provider. OB ULTRASOUND BIOPHYSICAL PROFILE CLINICAL HISTORY: Suspicion of intrahepatic cholestasis in COMPARISON: 01/20/2025, 01/13/2025, 10/07/2024, 08/04/2025. TECHNIQUE: Real time bradshaw scale imaging of the fetus was performed. Transabdominal imaging performed. FINDINGS: LMP: 05/20/2024. LITZY by LMP: 02/24/2025. GA: 36 weeks 0 days. Gestation: Single. Cervix: Not visualized. positioning: Vertex. Amniotic Fluid: 6.4 cm SDP. Biophysical Profile Gross Body Movements: 2 Tone: 2 Respiratory Activity: 2 Amniotic Fluid SDP: 2 Total Score: 8 Placenta: Technique: TA. Placenta Position: Anterior. Dopplers: Heart Rate: 131 bpm. IMPRESSION: Normal biophysical profile score of 8/8. Eric Amaro M.D. Diagnostic Radiologist [email or web address] Transcribed: 11:56 am DW/Dictated by: Eric Amaro MD @ 01/27/2025 10:48:00 AM (Electronically Signed)
== END 2025-01-27 09:09 | disposition home or self-care (01) ==
LOC: US 09:08
PROVIDERS: Visit Provider Advanced Practice Midwife
DX: Z36.89 Encounter for other specified antenatal screening (principal); Z03.89 Encounter for observation for other suspected diseases and conditions ruled out; Z34.93 Encounter for supervision of normal pregnancy, unspecified, third trimester
CPT/HCPCS: 76819

== ENCOUNTER 2025-01-27 10:19 | Outpatient (CLI) | payer BC, SELFPAY ==
[2025-01-28 13:55] LABS: Strep B DNA Probe Negative (Negative)
[2025-01-28 13:58] LABS: Strep B Susceptibility Needed? No
== END 2025-01-27 10:20 | disposition home or self-care (01) ==
LOC: NFLDREF 10:19
PROVIDERS: Visit Provider Advanced Practice Midwife
DX: Z34.93 Encounter for supervision of normal pregnancy, unspecified, third trimester (principal)
CPT/HCPCS: 82239; 82728; 84450; 84460; 87081; 87653

== ENCOUNTER 2025-02-03 10:05 | Outpatient (CLI) | payer BC, SELFPAY ==
--- NOTE | 2025-02-03 10:15 | CRLHL7_ITS ---
For Patients: As a result of the Century Cures Act, medical imaging exams and procedure reports are released immediately into your electronic medical record. You may view this report before your referring provider. If you have questions, please contact your health care provider. OB ULTRASOUND 02/03/2025 INDICATION: Suspicion of intrahepatic cholestasis. TECHNIQUE: Real time bradshaw scale imaging of the fetus was performed. Transvaginal imaging performed. LMP: 05/20/2024. LITZY by LMP: 02/24/2025. GA: 37 w, 0 d. Surgery: . Comparison: 01/27/2025, 01/20/2025, 01/13/2025. CERVIX: Not Visualized. POSITIONING: Vertex. AMNIOTIC FLUID: 4.6 cm SDP (N: greater than 2 x 1 cm) BIOPHYSICAL PROFILE: Gross body movements: 2. tone: 2. Respiratory activity: 2. Amniotic fluid: 2. SDP (N: greater than 2 x 1 cm). Total score: 8. PLACENTA: Technique: Transabdominal. PLACENTA POSITION: Anterior. DOPPLER: heart rate: 130 bpm. IMPRESSION: Normal biophysical profile 09/16. ERIC BUSTOS M.D. Diagnostic Radiologist [email or web address] DW/Dictated by: Eric Bustos MD @ 02/05/2025 1:19:00 PM (Electronically Signed)
== END 2025-02-03 10:06 | disposition home or self-care (01) ==
LOC: US 10:05
PROVIDERS: Visit Provider Obstetrics & Gynecology
DX: O99.713 Diseases of the skin and subcutaneous tissue complicating pregnancy, third trimester (principal); L29.9 Pruritus, unspecified; Z3A.37 37 weeks gestation of pregnancy
CPT/HCPCS: 76819

== ENCOUNTER 2025-02-03 10:10 | Outpatient (CLI) | payer BC, SELFPAY | END 2025-02-03 10:11 | disposition home or self-care (01) | LOC: NFLDREF 02-06 13:00 | PROVIDERS: Visit Provider Advanced Practice Midwife | DX: O99.713 Diseases of the skin and subcutaneous tissue complicating pregnancy, third trimester (principal); L29.9 Pruritus, unspecified | CPT/HCPCS: 82239; 84450; 84460 ==

== ENCOUNTER 2025-02-07 15:12 | Outpatient (CLI) | payer BC, SELFPAY | END 2025-02-07 15:13 | disposition home or self-care (01) | PROVIDERS: Visit Provider Advanced Practice Midwife | DX: O99.713 Diseases of the skin and subcutaneous tissue complicating pregnancy, third trimester (principal); L29.9 Pruritus, unspecified | CPT/HCPCS: 82239; 84450; 84460 ==